=== PATIENT | female | born 1965 | race Caucasian/White ===

== ENCOUNTER 2017-09-21 17:06 | Inpatient (IN) | payer MEDICARE, OTHER ==
[~2017-09-21] VITALS: Ht 170.2 cm; Wt 93.9 kg
[~2017-09-21 17:06] MED LIST: ACETAMINOPHEN325 M1 PO; AMBIEN10 MG PO; AMLODIPINE BESYL5 MG PO; ATORVASTATIN CA10 MG PO; BACTRIM DS TAB1 EACH PO; BENZAPRIL PO; BENZONATATE100 MG PO; BUSPIRONE HCL5 MG PO; CITALOPRAM HBR20 MG PO; DIAZEPAM5 MG PO; FENTANYL1 EAC3 TD; FUROSEMIDE40 MG PO; GABAPENTIN300 MG PO; K-DUR20 ME1 PO; LEVAQUIN500 MG PO; LEVEMIR 3M100 UNITS/ SQ; LEVEMIR100 UNIT/1 SC; LEVOTHYROXINE100 MCG PO; LIDODERM700 MG TOP; METOPROLOL TART25 MG PO; MORPHINE SULFAT30 M2 PO; NICOTINE PATCH1 EAC5; NITROGLYCERIN TD; NORCO 10-325 T1 EACH PO; NORCO 10MG-325MG1 EA PO; NOVOLOG 3M100 UNITS/ SQ; PANTOPRAZOLE SO40 MG PO; POTASSIUM CHLO20 ME1 PO; PROAIR HFA INH8.5 GM INH; PROMETHAZINE HC25 M1 PO; SEROQUEL25 MG PO; TESSALON PERLE100 MG PO; VESICARE5 MG PO; Z IMITREX PO; Z.0.ALBUTEROL SULF8. INH; Z.0.AMLODIPINE BESYL PO; Z.0.BENZONATATE200 M PO; Z.0.BUSPIRONE HCL10 PO; Z.0.CYCLOBENZAPRINE1 MT; Z.0.CYMBALTA60 MG MT; Z.0.DIAZEPAM10 MG PO; Z.0.FUROSEMIDE40 MG PO; Z.0.LEVEMIR 3M100 UN SQ; Z.0.LEVOTHYROXINE75 PO; Z.0.LYRICA50 MG MT; Z.0.NITROGLYCERIN0.4 SL; Z.0.PANTOPRAZOLE SO4 PO; Z.0.PROMETHAZINE HC2 PO; Z.0.TRAZODONE HCL50 PO; Z.0.ZOLPIDEM TARTRA1 PO; Z.1.ALBUTEROL2.5 MG/ IH; Z.1.BENICAR HCT 401 MT; Z.1.DOXYCYCLINE HY10 PO; Z.2.METFORMIN HCL500 PO; ZANAFLEX4 MG PO; [UNRECOGNIZED DRUG - OTHER] MT
[2017-09-21 18:43] LABS: BILIRUBIN,URINE NEGATIVE (NEGATIVE); CLARITY,URINE CLEAR (CLEAR); COLOR,URINE YELLOW (YELLOW); KETONES,URINE NEGATIVE (NEGATIVE); LEUKOCYTE ESTERASE ,URINE NEGATIVE (NEGATIVE); NITRITE,URINE NEGATIVE (NEGATIVE); PROTEIN,URINE DIPSTICK NEGATIVE (NEGATIVE); URINE UROBILINOGEN 0.2 mg/dL (0.2 - 1)
--- NOTE | 2017-09-21 18:45 | Diagnostic Imaging Report ---
PROCEDURE: CHEST SINGLE (PORTABLE) 1817 hrs. COMPARISON: Chest x-ray 12/03/16. INDICATIONS: PAIN ALL OVER BODY FINDINGS: LUNGS: New prominence of the pulmonary interstitium and groundglass opacities throughout the left lung and to a lesser extent the right lung. The vascular markings are prominent, similar to previous exam. No consolidations or discrete soft tissue mass. There is diffuse bronchial wall thickening.The lungs are diffusely hyperinflated consistent with COPD. PLEURA: No effusions or pneumothorax. HEART \T\ MEDIASTINUM: The heart is mildly enlarged. BONES \T\ SOFT TISSUES: Intact. No focal osseous lesions CONCLUSION: Diffuse interstitial prominence and ground glass opacities predominantly in the left lung suggestive of an infectious/inflammatory process. Close interval follow-up is recommended to document resolution. Stable mild cardiomegaly. Dictated by: Gerda White M.D. on 09/21/2017 at 18:53 Electronically approved by: Gerda White M.D. on 09/21/2017 at 18:53
[2017-09-21 18:48] LABS: EPITHELIAL CELLS,URINE FEW /LPF; RBC,URINE 0-5 /HPF (0-5); WBC,URINE (MAN) 0-5 /HPF (0-5)
[2017-09-22] MEDS ORDERED: ACETAMINOPHEN 325 MG TAB PO ONE (00:45)
[2017-09-22 00:54] LABS: BASOPHILS % 0.3 % (0.0-1.0); HEMATOCRIT 37.6 % (34.2-44.1); HEMOGLOBIN 11.9 g/dL (12.0-16.0); LYMPHOCYTES % 13.7 % (18.0-39.1); MEAN CORPUSCULAR HEMOGLOBIN 26.4 pg (28-32); MEAN CORPUSCULAR HGB CONC 31.6 g/dL (31-35); MEAN CORPUSCULAR VOLUME 83.4 fL (81-99); MONOCYTES # (AUTO) 0.9 (0.2-0.8); MONOCYTES % 6.1 % (4.4-11.3); NEUTROPHILS # (AUTO) 11.7 (2.1-6.9); NEUTROPHILS % 79.4 % (38.7-80.0); PLATELET COUNT 183 x10e3/uL (140-360); RED BLOOD COUNT 4.51 x10e6/uL (3.6-5.1)
[2017-09-22 01:01] LABS: INR 1.06; PROTHROMBIN TIME 14.4 seconds (11.9-14.5)
[2017-09-22 01:02] LABS: PARTIAL THROMBOPLASTIN TIME 34.2 seconds (23.8-35.5)
[2017-09-22 01:10] LABS: ALANINE AMINOTRANSFERASE 19 IU/L (0-55); ALBUMIN 3.2 g/dL (3.5-5.0); ALBUMIN/GLOBULIN RATIO 0.8 (0.8-2.0); ALKALINE PHOSPHATASE 116 IU/L (40-150); ANION GAP 13.7 mmol/L (8-16); BLOOD UREA NITROGEN 12 mg/dL (7-26); BUN/CREATININE RATIO 14 (6-25); CALCIUM 8.6 mg/dL (8.4-10.2); CARBON DIOXIDE 23 mmol/L (22-29); CHLORIDE 99 mmol/L (98-107); CREATINE KINASE 69 IU/L (29-168); CREATININE, SERUM 0.88 mg/dL (0.57-1.11); EST GLOMERULAR FILTRATION RATE > 60 ML/MIN (60-); GLUCOSE 363 mg/dL (74-118); POTASSIUM 3.7 mmol/L (3.5-5.1); SODIUM 132 mmol/L (136-145)
[2017-09-22 01:28] LABS: CREATINE KINASE MB < 1.00 ng/mL (0-4.3); TROPONIN I < 0.05 ng/mL (0.0-0.40)
[2017-09-22] MEDS ORDERED: LEVOFLOXACIN 750MG/D5W 150ML 150 ML IV STA (02:52)
[2017-09-22] MEDS ORDERED: ALBUTEROL SULF 0.083% NEB SOLN 3 ML NEB NEB STA (02:56)
[2017-09-22] MEDS ORDERED: METHYLPREDNISOLONE SOD SUCC 125 MG/2ML VIAL IV ONE (03:00)
[2017-09-22] MEDS ORDERED: SODIUM CHLORIDE 0.9% 1000ML 1,000 ML IV ONE ×2 (03:00→03:15)
[2017-09-22] MEDS ORDERED: IPRATROPIUM BROMIDE 0.02% 2.5 ML NEB NEB ONE (03:00)
[2017-09-22] MEDS ORDERED: SODIUM CHLORIDE 0.9% 1000ML 1,000 ML ONE (03:09)
[2017-09-22] MEDS ORDERED: LEVOFLOXACIN 750MG/DEXTROSE PREMIX BAG 150ML IV SCH (05:30)
[2017-09-22] MEDS ORDERED: ASPIRIN 81 MG CHEW TAB PO ONE ×2 (05:30→06:15)
[2017-09-22] MEDS ORDERED: ACETAMINOPHEN 325 MG TAB PO PRN (05:30)
[2017-09-22] MEDS ORDERED: DEXTROSE 50% SYRINGE 50 ML IV PRN (05:30)
[2017-09-22] MEDS ORDERED: ONDANSETRON HCL INJ 2 MG/ML VIAL IV PRN (05:30)
[2017-09-22] MEDS ORDERED: METHYLPREDNISOLONE SOD SUCC 40 MG/ML VIAL IV SCH (06:00)
[2017-09-22] MEDS: ALBUTEROL SULF 0.083% NEB SOLN 3 ML NEB NEB SCH ×2 (07:00→11:00)
[2017-09-22] MEDS: IPRATROPIUM BROMIDE 0.02% 2.5 ML NEB NEB SCH ×4 (07:00→23:00)
[2017-09-22] MEDS: SODIUM CHLORIDE 0.9% 1000ML 1,000 ML IV SCH ×2 (07:44→19:05)
[2017-09-22] MEDS: INSULIN REGULAR, HUMAN 100 UNIT/1 ML 3ML VIAL SQ SCH ×6 (08:26→21:20)
[2017-09-22] MEDS ORDERED: TRULICITY SQ (08:32)
[2017-09-22] MEDS: LEVOFLOXACIN 750MG/D5W 150ML 150 ML IV SCH (08:34)
[2017-09-22] MEDS ORDERED: SODIUM CHLORIDE 0.9% 1000ML 1,000 ML IV STA (08:36)
[2017-09-22] MEDS ORDERED: LIDOCAINE 5% PATCH TP PRN (09:30)
[2017-09-22] MEDS ORDERED: TIZANIDINE HCL 4 MG TAB PO PRN (09:30)
[2017-09-22] MEDS ORDERED: DIAZEPAM 5 MG TAB PO PRN (09:30)
[2017-09-22] MEDS ORDERED: BENZONATATE 100 MG CAP PO PRN (09:30)
[2017-09-22] MEDS ORDERED: DULAGLUTIDE SQ SCH (09:30)
[2017-09-22] MEDS ORDERED: PROMETHAZINE HCL 25 MG TAB PO PRN (09:30)
[2017-09-22 10:03] LABS: CREATINE KINASE MB 0.8 ng/mL (0.00-5.00); TROPONIN I 0.005 ng/mL (0-0.300)
[2017-09-22] MEDS: HYDROCODONE/APAP 10MG-325MG TAB PO SCH ×2 (13:00→17:00)
[2017-09-22] MEDS ORDERED: GABAPENTIN 300 MG CAP PO SCH (15:00)
[2017-09-22] MEDS ORDERED: NITROGLYCERIN 0.4 MG SUBL SL SCH (15:45)
[2017-09-22] MEDS ORDERED: SUMATRIPTAN SUCCINATE 25 MG TAB PO PRN (15:45)
[2017-09-22] MEDS ORDERED: ALBUTEROL SULFATE HFA 8GM INHALATION AEROSOL INH PRN (15:45)
[2017-09-22 16:00] VITALS: BP 134/82
[2017-09-22] MEDS ORDERED: MAGNESIUM SULFATE 2GM/50ML 50 ML IV ONE (16:00)
[2017-09-22] MEDS ORDERED: ASPIR 8181 MG PO (16:55)
[2017-09-22] MEDS ORDERED: BUSPIRONE HCL5 MG PO (16:55)
[2017-09-22] MEDS ORDERED: STOOL SOFTENER100 MG PO (16:55)
[2017-09-22] MEDS ORDERED: BISCODYL (16:55)
[2017-09-22] MEDS ORDERED: LISINOPRIL10 MG PO (16:55)
[2017-09-22] MEDS ORDERED: FUROSEMIDE40 MG PO (16:55)
[2017-09-22] MEDS: BUSPIRONE HCL 5 MG TAB PO SCH (17:00)
[2017-09-22] MEDS ORDERED: AMLODIPINE BESYLATE 5 MG TAB PO SCH (17:00)
[2017-09-22] MEDS: MORPHINE SULFATE 15MG TAB CR PO SCH (17:00)
[2017-09-22] MEDS: ENOXAPARIN SOD INJ 40 MG/0.4 ML SYR SC SCH (17:00)
[2017-09-22] MEDS ORDERED: MORPHINE SULFATE 30 MG TAB ER PO SCH (17:00)
[2017-09-22] MEDS ORDERED: METFORMIN HCL 500 MG TAB PO SCH (17:00)
[2017-09-22] MEDS: FUROSEMIDE 40 MG TAB PO SCH (17:00)
[2017-09-22 18:37] VITALS: BP 134/82
[2017-09-22 18:49] LABS: CREATINE KINASE MB 1.6 ng/mL (0.00-5.00); TROPONIN I 0.007 ng/mL (0-0.300)
[2017-09-22 20:00] VITALS: BP 101/50
--- NOTE | 2017-09-22 20:18 | History and Physical ---
HISTORY OF PRESENT ILLNESS: A 52-year-old female with past medical history positive for COPD, sarcoidosis, diabetes mellitus type 2, hypertension. She came to the hospital complaining of shortness of breath and wheezing. She was found to have pneumonia and COPD exacerbation. Started on IV antibiotic and admitted to the hospital. REVIEW OF SYSTEMS: CARDIOVASCULAR: She had an episode of chest pain, which has resolved right now. RESPIRATORY: She did have cough, shortness of breath and wheezing. GASTROINTESTINAL: No nausea, vomiting or diarrhea. GENITOURINARY: No frequency or dysuria. ALLERGIES: LONG LIST OF MEDICATIONS, LISTED IN THE CHART. SOCIAL HISTORY: She has history of smoking. She does not drink. PAST MEDICAL HISTORY: COPD, sarcoidosis, diabetes and chronic diastolic congestive heart failure. History of chronic pain syndrome. PHYSICAL EXAMINATION: HEART: Shows regular rhythm. Normal S1 and no extra sounds. LUNGS: Show decreased breath sounds bilaterally. ABDOMEN: Soft. EXTREMITIES: Show no evidence of cyanosis, edema or trauma. FINAL IMPRESSION: 1. Chronic obstructive pulmonary disease exacerbation. 2. Lobar pneumonia. 3. Sarcoidosis. 4. Uncontrolled diabetes mellitus type 2 with polyneuropathy. 5. Chronic pain syndrome. PLAN OF TREATMENT: Continue current IV antibiotic regimen. Continue inhalers. We started the patient on insulin regimen of Levemir 16 units at bedtime and Humalog 6 units before each meal. Due to the uncontrolled blood sugar, continue monitoring blood sugar a.c. and nightly. Continue diabetic diet. Continue with Levaquin 750 mg IV piggyback daily. Continue with normal saline 125 mL an hour. Continue with Tylenol 350 mg q.4 h. as needed for pain or fever. Continue albuterol 2 inhalations q.4 h. as needed for shortness of breath. Continue albuterol nebulizer q.4 h. as needed around the clock. Continue amlodipine 5 mg twice a day for hypertension. Continue with aspirin 81 mg one time. Lipitor 10 mg daily. Atrovent q.4 h. Tessalon 200 mg q.6 h. as needed. Citalopram 20 mg daily. Diazepam 10 mg as needed for anxiety once a day. Continue Lovenox 40 mg subcutaneously daily for DVT prophylaxis. Gabapentin 300 mg 3 times a day for diabetic neuropathy. Levemir 16 units at bedtime and Humalog 6 units before each meal. Continue with levothyroxine 100 mcg p.o. daily. Lidoderm patch 12 hours on and 12 hour off. Metformin 1000 mg twice a day. Metoprolol 12.5 mg daily. Morphine 30 mg p.o. twice a day. Nitroglycerin 0.4 mg sublingual p.r.n. for chest pain. Zofran 4 mg IV q.4 h. as needed for nausea and vomiting. Prednisone 40 mg daily. Promethazine 25 mg as needed for nausea. Seroquel 200 mg at bedtime. Continue Vesicare 10 mg daily. Sumatriptan 25 mg daily as needed for migraine. Zanaflex 4 mg q.8 h. as needed. Ambien 5 mg at night p.r.n. for sleep. Trulicity 0.75 units subcutaneously weekly. Consult Dr. Prasad for endocrinology. We are going to consult Dr. Hugo, which is her usual auto heater mechanic and Dr. Lamra for pulmonary. Patient uses oxygen at home. She is much more comfortable right now. Job#: [id number]
[2017-09-22] MEDS: ALBUTEROL SULF 0.083% NEB SOLN 3 ML NEB INH SCH (20:30)
[2017-09-22] MEDS ORDERED: SOLIFENACIN SUCCINATE 5 MG TAB PO SCH (21:00)
[2017-09-22] MEDS ORDERED: INSULIN DETEMIR 100 UNIT/ML PEN SQ SCH (21:00)
[2017-09-22] MEDS ORDERED: ZOLPIDEM TARTRATE 5 MG TAB PO SCH (21:00)
[2017-09-22] MEDS: ATORVASTATIN 10 MG TAB PO SCH (21:18)
[2017-09-22] MEDS: QUETIAPINE FUMARATE 100 MG TAB PO SCH (21:18)
[2017-09-22] MEDS: GABAPENTIN 300 MG CAP PO SCH (21:21)
[2017-09-23] VITALS (7 sets, daily range): BP systolic 92–110; BP diastolic 53–65
[2017-09-23] MEDS: IPRATROPIUM BROMIDE 0.02% 2.5 ML NEB NEB SCH ×6 (02:10→23:00)
[2017-09-23] MEDS: GABAPENTIN 300 MG CAP PO SCH ×3 (06:12→21:38)
[2017-09-23] MEDS: LEVOTHYROXINE SODIUM 100 MCG TAB PO SCH (06:12)
[2017-09-23] MEDS: LEVOFLOXACIN 750MG/D5W 150ML 150 ML IV SCH (06:13)
[2017-09-23] MEDS: ALBUTEROL SULF 0.083% NEB SOLN 3 ML NEB INH SCH ×4 (07:00→20:25)
[2017-09-23] MEDS: INSULIN REGULAR, HUMAN 100 UNIT/1 ML 3ML VIAL SQ SCH ×3 (07:30→11:30)
[2017-09-23] MEDS: MORPHINE SULFATE 15MG TAB CR PO SCH ×3 (08:30→20:07)
[2017-09-23] MEDS: FUROSEMIDE 40 MG TAB PO SCH ×2 (08:30→17:00)
[2017-09-23] MEDS: CITALOPRAM HYDROBROMIDE 20 MG TAB PO SCH (08:30)
[2017-09-23] MEDS: ASPIRIN 81 MG CHEW TAB PO SCH (08:30)
[2017-09-23] MEDS: BUSPIRONE HCL 5 MG TAB PO SCH ×2 (08:30→17:00)
[2017-09-23] MEDS: DOCUSATE SODIUM 100 MG CAP PO SCH (08:30)
[2017-09-23] MEDS: METOPROLOL TARTRATE 25 MG TAB PO SCH (08:30)
[2017-09-23] MEDS: PANTOPRAZOLE SOD 40 MG TABEC PO SCH (08:30)
--- NOTE | 2017-09-23 08:31 | Diagnostic Imaging Report ---
EXAMINATION: CHEST SINGLE (PORTABLE) INDICATION: \S\pneumonia COMPARISON: Chest x-ray 09/21/2017. FINDINGS: AP view TUBES and LINES: None. LUNGS: Lungs are well inflated. There are bibasilar atelectasis. There is perihilar interstitial opacities, consistent with interstitial edema. PLEURA: Trace right pleural effusion. HEART AND MEDIASTINUM: Cardiac size is moderately enlarged. There are atherosclerotic calcifications within the aorta. BONES AND SOFT TISSUES: No acute osseous lesion. Soft tissues are unremarkable. UPPER ABDOMEN: No free air under the diaphragm. IMPRESSION: No significant interval change in appearance of the interstitial edema, most likely cardiogenic. Signed by: Dr. Salomón Hanson M.D. on 09/23/2017 8:28 AM
[2017-09-23 08:36] LABS: BASOPHILS % 0.1 % (0.0-1.0); HEMATOCRIT 31.2 % (34.2-44.1); HEMOGLOBIN 9.7 g/dL (12.0-16.0); LYMPHOCYTES # (AUTO) 1.3 (1.0-3.2); LYMPHOCYTES % 18.1 % (18.0-39.1); MEAN CORPUSCULAR HEMOGLOBIN 26.8 pg (28-32); MEAN CORPUSCULAR HGB CONC 31.1 g/dL (31-35); MEAN CORPUSCULAR VOLUME 86.2 fL (81-99); MONOCYTES # (AUTO) 0.3 (0.2-0.8); MONOCYTES % 3.4 % (4.4-11.3); NEUTROPHILS # (AUTO) 5.8 (2.1-6.9); PLATELET COUNT 153 x10e3/uL (140-360); RED BLOOD COUNT 3.62 x10e6/uL (3.6-5.1)
[2017-09-23] MEDS ORDERED: HYDROCODONE/APAP 10MG-325MG TAB PO PRN (09:00)
[2017-09-23] MEDS: LISINOPRIL 20 MG TAB PO SCH (09:00)
[2017-09-23] MEDS ORDERED: PREDNISONE 20 MG TAB PO SCH (09:00)
[2017-09-23 09:01] LABS: BLOOD UREA NITROGEN 16 mg/dL (7-26); BUN/CREATININE RATIO 21 (6-25); CALCIUM 8.2 mg/dL (8.4-10.2); CARBON DIOXIDE 25 mmol/L (22-29); CHLORIDE 107 mmol/L (98-107); CREATININE, SERUM 0.78 mg/dL (0.57-1.11); EST GLOMERULAR FILTRATION RATE > 60 ML/MIN (60-); GLUCOSE 265 mg/dL (74-118); SODIUM 140 mmol/L (136-145)
[2017-09-23] MEDS ORDERED: INSULIN REGULAR, HUMAN 100 UNIT/1 ML 3ML VIAL SQ SCH (16:30)
[2017-09-23] MEDS: INSULIN LISPRO 100 UNIT/1 ML 3ML VIAL SQ SCH ×3 (16:30→20:08)
[2017-09-23 16:47] LABS: FREE T4 (FREE THYROXINE) 1.01 ng/dL (0.8-1.8); THYROID STIMULATING HORMONE 0.151 uIU/mL (0.350-4.940)
[2017-09-23] MEDS ORDERED: INSULIN LISPRO 100 UNIT/1 ML 3ML VIAL SQ SCH (17:00)
[2017-09-23] MEDS: ENOXAPARIN SOD INJ 40 MG/0.4 ML SYR SC SCH (17:00)
--- NOTE | 2017-09-23 17:15 | Consultation ---
DATE OF CONSULTATION: September 22, 2017 PULMONARY MEDICINE CONSULTATION REASON FOR REFERRAL: Shortness of breath. HISTORY: Mrs. Addison is a pleasant 52-year-old female with shortness of breath. The patient is well known to me during the last few years for management for predominantly COPD. The patient was having increased cough recently. There is associated congestion and fever and left-sided chest pains. Onset really worsened over the last 2 days. The patient was getting first line therapy at home and even in the emergency room. She had insufficient response, and so, therefore, it was elected to admit her to the hospital. The patient is well known with COPD and secondary pulmonary hypertension. There is report of sarcoidosis as longstanding diagnosis, but tissue diagnosis was not found when I did record recovery. The patient has mixture of assist devices to help her ambulating including a cane, a wheelchair and scooter. She recently lost her walker. Her exercise tolerance takes her from her home to the driveway. The patient recently worsening in terms of her functionality and exercise tolerance. PAST MEDICAL HISTORY: Hypertension, diabetes, COPD, long-term hypoxemia, chronic respiratory failure on 6 liters per minute nasal cannula oxygen at home, CHF, asthma, report of sarcoidosis in the past, history of cholecystectomy, appendectomy, hysterectomy, hernia surgery, bowel resection, laminectomy, knee surgery, multiple hernia repairs. MEDICATIONS: Medication list includes multiple meds which were reviewed per electronic records and some of which she may no longer be on. ALLERGIES: PAPER TAPE, VALSARTAN, , IODINE. FAMILY HISTORY: Noncontributory to this condition. SOCIAL HISTORY: She smokes 1-2 packs a day, no heavy drinking, no drugs. She has a large supportive family. REVIEW OF SYSTEMS: GENERAL: No weight changes recently. HEENT: Dry mouth. OPHTHALMOLOGIC: No double vision. ENDOCRINE: No thyroid disease. PULMONARY: No hemoptysis. CARDIAC: No recent myocardial infarction. GI: Mild constipation chronically. : No blood in the urine. NEUROLOGIC: No seizures. MUSCULOSKELETAL: Mild arthritis. PSYCHIATRIC: No active depressive mood. OBJECTIVE VITAL SIGNS: Afebrile. Vital signs noted per electronic record. GENERAL: Some increased work of breathing, mild. She appears very weak and is pale. HEENT: Normocephalic, atraumatic. NECK: Supple. Throat midline. LUNGS: Bilateral air entry, moderate wheezing, few rhonchi. CARDIOVASCULAR: S1 and S2, no murmurs, rubs or gallops. ABDOMEN: Soft and nontender. EXTREMITIES: No clubbing or cyanosis. There is trace edema to the legs. INTEGUMENT: No rash, no purpura. LABORATORY DATA: Potassium 3.7, BUN 12, 0.9 creatinine, 50 white count, 38 hematocrit, 183,000 platelets. BNP was 150. Albumin 3.2. IMPRESSION AND PLAN 1. Chronic obstructive pulmonary disease with exacerbation. 2. Treat for pneumonia. 3. History of reported sarcoidosis. Could never recover the original or any biopsies despite her thinking she had them done. 4. History of diastolic congestive heart failure. 5. Some chronic pain. 6. Diabetes, hypertension, history of pancreatitis. 7. Admit to the hospital. Continue steroids. Continue bronchodilators. Continue to ensure the chest x-ray is resolved towards baseline or else she will need a CAT scan of her lungs. 8. Deep venous thrombosis prophylaxis. Aggressive therapy immobilization. I would like to thank Dr. Jarvis for the opportunity to participate in the care of Mrs. Addison. I remain available for questions -- please call. Job#: [id number]
[2017-09-23] MEDS ORDERED: PNEUMOCOCCAL VACCINE POLYVALENT 23 MCG/0.5 ML VIAL IM SCH (19:00)
[2017-09-23] MEDS ORDERED: INFLUENZA VIRUS VAC SPLIT INJ 0.5 ML SYR IM SCH (19:00)
[2017-09-23] MEDS: SODIUM CHLORIDE 0.9% 1000ML 1,000 ML IV SCH ×2 (20:07→20:15)
[2017-09-23] MEDS: QUETIAPINE FUMARATE 100 MG TAB PO SCH (20:08)
[2017-09-23] MEDS: ATORVASTATIN 10 MG TAB PO SCH (20:08)
[2017-09-23] MEDS ORDERED: INSULIN DETEMIR 100 UNIT/ML PEN SQ SCH ×2 (21:00)
[2017-09-24] VITALS: BP 113/58
[2017-09-24] MEDS: IPRATROPIUM BROMIDE 0.02% 2.5 ML NEB NEB SCH ×2 (02:25→07:00)
[2017-09-24 04:00] VITALS: BP 112/60
[2017-09-24] MEDS: LEVOTHYROXINE SODIUM 100 MCG TAB PO SCH (05:14)
[2017-09-24] MEDS: LEVOFLOXACIN 750MG/D5W 150ML 150 ML IV SCH (05:14)
[2017-09-24] MEDS: GABAPENTIN 300 MG CAP PO SCH (05:14)
[2017-09-24] MEDS: ALBUTEROL SULF 0.083% NEB SOLN 3 ML NEB INH SCH (07:00)
--- NOTE | 2017-09-24 07:01 | Diagnostic Imaging Report ---
EXAMINATION: CHEST SINGLE (PORTABLE) INDICATION: \S\CHF and bilateral pneumonia COMPARISON: 09/23/2017 FINDINGS: TUBES and LINES: None. LUNGS: Lungs are well inflated. There are bibasilar atelectasis. There is mild prominence of the central pulmonary vasculature, consistent with pulmonary venous congestion. Interlobular septi thickening present. PLEURA: No pleural effusion or pneumothorax. HEART AND MEDIASTINUM: Cardiac size is mildly enlarged. BONES AND SOFT TISSUES: No acute osseous lesion. Soft tissues are unremarkable. UPPER ABDOMEN: No free air under the diaphragm. IMPRESSION: Mild interstitial edema Signed by: Dr. Manuel Haque M.D. on 09/24/2017 6:57 AM
[2017-09-24 07:09] LABS: BASOPHILS % 0.1 % (0.0-1.0); EOSINOPHILS % 0.1 % (0.0-6.0); HEMOGLOBIN 9.8 g/dL (12.0-16.0); LYMPHOCYTES # (AUTO) 2.3 (1.0-3.2); LYMPHOCYTES % 32.8 % (18.0-39.1); MEAN CORPUSCULAR HEMOGLOBIN 26.6 pg (28-32); MEAN CORPUSCULAR HGB CONC 30.6 g/dL (31-35); MONOCYTES # (AUTO) 0.2 (0.2-0.8); MONOCYTES % 3.3 % (4.4-11.3); NEUTROPHILS # (AUTO) 4.5 (2.1-6.9); NEUTROPHILS % 63.4 % (38.7-80.0); PLATELET COUNT 164 x10e3/uL (140-360); RED BLOOD COUNT 3.68 x10e6/uL (3.6-5.1); RED CELL DISTRIBUTION WIDTH 15.8 % (11.7-14.4)
[2017-09-24] MEDS: INSULIN LISPRO 100 UNIT/1 ML 3ML VIAL SQ SCH ×2 (07:30→08:00)
[2017-09-24 07:38] LABS: ANION GAP 12.6 mmol/L (8-16); BLOOD UREA NITROGEN 18 mg/dL (7-26); BUN/CREATININE RATIO 21 (6-25); CALCIUM 8.4 mg/dL (8.4-10.2); CARBON DIOXIDE 28 mmol/L (22-29); CHLORIDE 104 mmol/L (98-107); CREATININE, SERUM 0.87 mg/dL (0.57-1.11); EST GLOMERULAR FILTRATION RATE > 60 ML/MIN (60-); GLUCOSE 256 mg/dL (74-118); POTASSIUM 3.6 mmol/L (3.5-5.1); SODIUM 141 mmol/L (136-145)
--- NOTE | 2017-09-24 08:11 | Consultation ---
DATE OF CONSULTATION: REASON FOR CONSULTATION: Chest pain. HISTORY OF PRESENT ILLNESS: Ms. Addison is a 52-year-old lady with a past medical history as listed below. Apparently, has not been feeling too well for the last couple of weeks. She states she has had some cough, congestion and fever off and on in the last few days, and it has gotten worse. Patient states that she gets chest pain when she coughs, and at times even when she does not cough. It lasts for about 10-15 minutes or so. She has had a stress test a few years back. Yesterday, the patient reportedly was really sick and so they called 911, and was brought to the hospital. Grandson reported that she has been having some runny nose. She states she feels better now. REVIEW OF SYSTEMS CONSTITUTIONAL: Has some fatigue and weakness. HEENT: Has a headache. No blurring of vision, seizures or syncope. CARDIOVASCULAR: Chest pain and some dyspnea. No orthopnea or PND. RESPIRATORY: Has cough. Had fever and scant amount of expectoration. GI: No abdominal pain, vomiting or diarrhea. : No dysuria, frequency or incontinence. ALLERGIES: TAPE, VALSARTAN, SHELLFISH, FISH, PENICILLIN, IODINE. MEDICATIONS: See list. PAST MEDICAL HISTORY 1. History of COPD. 2. History of hypertension. 3. History of diabetes mellitus. 4. History of asthma/COPD. 5. History of sarcoidosis. 6. History of pancreatitis. 7. Cardiomyopathy. PAST SURGICAL HISTORY: History of hysterectomy, history of appendectomy, history of cholecystectomy. history of laminectomy, history of knee surgeries, history of hernia repair, surgery for perforated bowel. SOCIAL HISTORY: Smokes a pack a day. Does not drink alcohol. Smoked for several years. FAMILY HISTORY: Noncontributory. PHYSICAL EXAMINATION GENERAL: Moderately built and nourished lady alert and oriented. Not in any obvious distress. VITALS: Heart rate is 86, blood pressure 92/65, respiratory rate 18. HEENT: Atraumatic. NECK: No JVD, bruit, thyromegaly, or lymphadenopathy. CARDIOVASCULAR: First and 2nd heart sounds heard. No murmurs, rubs or gallops are appreciated. CHEST: Decreased air entry at the bases. No adventitious sounds appreciated. ABDOMEN: Soft and nontender. EXTREMITIES: No edema. LABS: EKG shows sinus tach at 103 beats per minute, right axis, right bundle branch block, secondary ST-T changes. IMPRESSION 1. Chronic obstructive pulmonary disease exacerbation. 2. Pneumonia. 3. Chest pain. 4. Cardiomyopathy. 5. Hypertension. 6. Diabetes mellitus. 7. History of sarcoidosis. 8. History of pancreatitis. PLAN 1. Follow serial colonic enzymes. 2. Get echocardiogram to assess LV function and valvular function. 3. Continue with antibiotics and bronchodilators. 4. Patient has been counseled on tobacco cessation. 5. Further cardiac workup depending on clinical course. 6. Discussed my impression and plan of management with the patient and she understands. As always, I appreciate and thank you very much for the referral. Job#: [id number] AYANNA
[2017-09-24 08:32] VITALS: BP 98/59
[2017-09-24] MEDS ORDERED: PREDNISONE 20 MG TAB PO SCH (09:00)
[2017-09-24] MEDS ORDERED: INSULIN DETEMIR 100 UNIT/ML PEN SQ SCH (09:00)
[2017-09-24] MEDS: BUSPIRONE HCL 5 MG TAB PO SCH (09:44)
[2017-09-24] MEDS: METOPROLOL TARTRATE 25 MG TAB PO SCH (09:44)
[2017-09-24] MEDS: MORPHINE SULFATE 15MG TAB CR PO SCH (09:44)
[2017-09-24] MEDS: DOCUSATE SODIUM 100 MG CAP PO SCH (09:44)
[2017-09-24] MEDS: ASPIRIN 81 MG CHEW TAB PO SCH (09:44)
[2017-09-24] MEDS: FUROSEMIDE 40 MG TAB PO SCH (09:44)
[2017-09-24] MEDS: CITALOPRAM HYDROBROMIDE 20 MG TAB PO SCH (09:44)
[2017-09-24] MEDS: LISINOPRIL 20 MG TAB PO SCH (09:45)
[2017-09-24] MEDS: PANTOPRAZOLE SOD 40 MG TABEC PO SCH (09:45)
--- NOTE | 2017-09-24 09:46 | Consultation ---
DATE OF CONSULTATION: September 22, 2017 ENDOCRINE CONSULTATION Thank you very much for referring this patient. This is a 52-year-old white female who is known to me from her previous followups several years back. Patient is a known diabetic for almost 7 years. She has been off the medications for almost 3 years, and was recently started back on the insulin 60 units twice a day of Levemir and Humalog 30 units 3 times a day. She is also on Trulicity as an outpatient. Patient has a long-standing history of COPD. She is a chronic smoker who came to the hospital with a history of chest pain and shortness of breath. Patient is presently on the steroids and her blood sugars are significantly elevated. Patient also has a history of congestive cardiomyopathy, hypertension, hypothyroidism, hyperlipidemia, and is on several other medications, including Lipitor 10 mg once daily, Synthroid 0.1 mg once daily. The patient during the hospital stay has been put on insulin, but her blood sugars are 363 to 265 range. Patient also has a history of sarcoidosis. PHYSICAL EXAMINATION GENERAL: Today, the patient is alert, awake and a little apprehensive. She is moderate to morbidly obese. VITALS: Her heart rate is around 100, blood pressure 130/80. HEENT: Essentially unremarkable. Thyroid is palpable. Clinically, she is near euthyroid. CHEST: Bilateral vesicular breathing. She has bilateral bronchospasm at the base. CARDIAC: First and 2nd heart sounds. There is no 3rd or 4th heart sounds. Ejection murmur of grade 2/6. EXTREMITIES: Patient has evidence of diabetic sensory neuropathy in both lower extremities. CLINICAL IMPRESSION 1. Diabetes mellitus, type 2, uncontrolled with complications precipitated by steroids. 2. Chronic obstructive pulmonary disease with acute exacerbation. 3. History of sarcoidosis. 4. Coronary artery disease. 5. Congestive cardiomyopathy. 6. Hypertension. 7. Hyperlipidemia. 8. Hypothyroidism. PLAN: At this time is to put her back on the Levemir twice a day and Humalog 3 times a day depending upon the blood sugars. Will do a hemoglobin A1c and thyroid function test. Thanks for referring this patient. I will be following this patient with you. Job#: [id number] AYANNA
--- NOTE | 2017-09-24 10:25 | Discharge Summary ---
ADMIT DIAGNOSES 1. Left lower lobe pneumonia, likely gram-negative alexx. 2. Chronic obstructive pulmonary disease exacerbation. 3. [id number] diastolic congestive heart failure. 4. Type 2 diabetes mellitus. 5. Tobacco abuse. DISCHARGE DIAGNOSES 1. Left lower lobe pneumonia, likely gram-negative alexx, resolving. 2. Chronic obstructive pulmonary disease exacerbation, resolved. 3. Severe chronic obstructive pulmonary disease. 4. [id number]-[id number] diastolic congestive heart failure, resolving. 5. Type 2 diabetes mellitus. 6. Tobacco abuse. HOSPITAL COURSE: This is a 52-year-old white woman who was initially admitted to [facility] with a diagnosis of COPD exacerbation secondary to left lower lobe pneumonia, likely gram-negative alexx. Patient improved clinically with intravenous antibiotics, namely levofloxacin. During this hospitalization, the patient's blood and urine cultures did not reveal any bacterial growth, but it was presumed her pneumonia was secondary to gram-negative alexx species. Once again, the patient improved dramatically with intravenous antibiotics. On admission, the patient's white blood cell count was 14,700. On the day of discharge, the patient's white blood cell count was 7000. The patient had an echocardiogram done during this hospitalization that revealed a left ventricular ejection fraction of 60% to 65%, but it did reveal concentric left ventricular hypertrophy and left atrial enlargement. The patient thus was diagnosed with diastolic heart failure. The patient was seen by her bee robber during this hospitalization, namely Dr. Piter Lamar because of her COPD exacerbation and history of sarcoidosis. The patient was also seen by her car dumper during this hospitalization, namely Dr. Hugo because of her congestive heart failure. The patient's hospitalization was unremarkable. During this hospitalization, the patient underwent serial cardiac enzymes, as well as electrocardiograms, which did not reveal any evidence of acute myocardial ischemia or infarction. CONDITION ON DISCHARGE: Stable. DISCHARGE MEDICATIONS 1. Levofloxacin 750 mg 1 p.o. daily for 7 days. 2. Prednisone 20 mg daily for 5 days. 3. Nicotine patch 21 mg one patch daily (the patient was told not to smoke more than 6 cigarettes a day while wearing the nicotine patch). 4. Anthon 10 per 325 mg 1 b.i.d. p.r.n. pain. 5. ProAir inhaler 2 puffs q.i.d. 6. Albuterol nebulized treatments 2.5 mg t.i.d. scheduled. 7. Buspar 10 mg b.i.d. 8. Citalopram 20 mg daily. 9. Diazepam 10 mg at bedtime p.r.n. insomnia/anxiety. 10. Docusate 100 mg daily. 11. Furosemide 40 mg b.i.d. 12. Gabapentin 600 mg daily. 13. Levothyroxine 100 mcg daily. 14. Lidoderm patch 1 patch applied to affected area. 15. Lisinopril 40 mg daily. 16. Metoprolol tartrate 12.5 mg daily. 17. Morphine sulfate extended release 15 mg b.i.d. 18. Nitroglycerin 0.4 mg 1 sublingual every 5 minutes p.r.n. chest pain. 19. Pantoprazole 40 mg daily. 20. Promethazine 25 mg once daily as needed for nausea and vomiting. 21. Seroquel 25 mg at bedtime. 22. Sumatriptan 25 mg once daily as needed for migraine headaches. 23. Tizanidine 4 mg q.8 h. p.r.n. muscle spasms. 24. Bisacodyl 5 mg once daily as needed for constipation. 25. Trulicity 0.75 mg subcutaneous once a week. FOLLOWUP INSTRUCTIONS: The patient was instructed to follow up with her primary care physician, namely myself, Dr. Aldair Crespo within 1 week. Tobacco cessation was highly recommended to the patient. ALDAIR CRESPO MD Job#: [id number] RI cc: Garrison ABDI MD MTDD
[2017-09-24] MEDS ORDERED: LEVAQUIN500 MG PO (10:57)
[2017-09-24] MEDS ORDERED: NICOTINE PATCH1 EAC1 TP (10:59)
[2017-09-24] MEDS ORDERED: PREDNISONE5 G1 (11:01)
[2017-09-24] MEDS ORDERED: PREDNISONE20 MG PO (11:01)
--- NOTE | 2017-09-24 11:01 | Progress Note ---
DATE: September 24, 2017 PULMONARY MEDICINE PROGRESS NOTE SUBJECTIVE: Ms. Addison was seen and examined at bedside. Chest x-ray continues to show bilateral moderate-size opacities. Patient still very weak. Oxygen saturation 100% on 3 L per minute of oxygen at this time. One bowel movement achieved. Brown phlegm being expectorated. Blood cultures no growth today times 24 hours. Urine cultures no growth so far. REVIEW OF SYSTEMS: No GI bleeding, no headaches, no double vision. OBJECTIVE VITALS: Afebrile. Vital signs noted per electronic record. GENERAL: Still weak, sitting up, mild increased work of breathing. HEENT: Normocephalic and atraumatic. NECK: Supple. Throat midline. LUNGS: Bilateral air entry is moderately present, slightly decreased. Few rhonchi, few rales. CARDIOVASCULAR: S1, S2. No murmurs, rubs or gallops. ABDOMEN: Soft, nontender. EXTREMITIES: No clubbing, no cyanosis, there is no edema. INTEGUMENT: No rash. No purpura. LABS: White count 7.4, hematocrit 31. BUN 16, creatinine 0.8, magnesium of 1.9. IMPRESSION AND PLAN 1. Pneumonia. 2. Possible fluid overload. 3. Chronic obstructive pulmonary disease with exacerbation. 4. Hypoxemia, chronic. 5. Reported sarcoidosis by history. 6. Diabetes. 7. Chronic pain syndrome. Continue current treatment. We will follow along closely. Diuretics trial as possible. Continue to push nutrition in-house. Smoking cessation remains highly recommended. Antibiotics for now. Continue steroids, which were weaned. Bronchodilators. After review outside CAT scan, definitely this x-ray is worse when compared to 2010 and 2012, but compared to a year ago is roughly the same with a few nonspecific changes. Continue other treatment as center of care for the COPD exacerbation. Follow along closely. CT has been ordered. Mobilize the patient as possible. Job#: [id number] VAS
--- NOTE | 2017-09-25 04:04 | Progress Note ---
DATE: September 24, 2017 PULMONARY MEDICINE PROGRESS NOTE SUBJECTIVE: Patient was seen and examined at bedside. She was eating well. She is having bowel movements. She walked around and feels much better. REVIEW OF SYSTEMS: No headaches. OBJECTIVE VITALS: Afebrile. Vital signs reviewed per the chart record. GENERAL: Alert and oriented times 3. HEENT: Normocephalic. NECK: Supple. LUNGS: Bilateral air entry. Rate rhonchi, mostly better. CARDIOVASCULAR: S1, S2. ABDOMEN: Soft. EXTREMITIES: No edema. INTEGUMENT: No rash. LABS: creatinine 0.9. White count 7, hematocrit 32. IMPRESSIONS 1. Interstitial lung disease, recently worsened. 2. Pneumonia. 3. Possible superimposed fluid overload. 4. Chronic obstructive pulmonary disease with exacerbation. 5. Weakness. PLAN 1. Continue oxygen therapy. 2. Patient will be discharged with close observation and followup. 3. We will discuss options with her regarding the need for bronchoscopy in near future. 4. Continue bronchodilators and other COPD management. Job#: [id number] CF
== END 2017-09-24 11:40 | disposition home or self-care (01) | DRG 190 ==
LOC: ER 17:06 → ERHOLD 09-22 05:36 → EDBEDREQSVC 09-22 08:17 → MED/SURG3 09-22 14:03
PROVIDERS: ADMIT Internal Medicine; ATTEND Internal Medicine
DX: J44.0 Chronic obstructive pulmonary disease with (acute) lower respiratory infection (principal); I50.33 Acute on chronic diastolic (congestive) heart failure; J15.6 Pneumonia due to other Gram-negative bacteria; J84.9 Interstitial pulmonary disease, unspecified; I42.9 Cardiomyopathy, unspecified; I11.0 Hypertensive heart disease with heart failure; J44.1 Chronic obstructive pulmonary disease with (acute) exacerbation; D86.9 Sarcoidosis, unspecified; E66.01 Morbid (severe) obesity due to excess calories; Z68.32 Body mass index [BMI] 32.0-32.9, adult; E03.9 Hypothyroidism, unspecified; E11.65 Type 2 diabetes mellitus with hyperglycemia; F17.210 Nicotine dependence, cigarettes, uncomplicated; R09.02 Hypoxemia; G89.29 Other chronic pain; G89.4 Chronic pain syndrome; E11.42 Type 2 diabetes mellitus with diabetic polyneuropathy; Z79.4 Long term (current) use of insulin
CPT/HCPCS: 36415; 71010; 80048; 80053; 81001; 82550; 82553; 82948; 83036; 83605; 83735; 83880; 84439; 84443; 84484; 85025; 85610; 85730; 87040; 87086; 87400; 93005; 93306; 94640; 96360; 96365; 96374; 99284; J1650; J2920; J2930; J7030

== ENCOUNTER 2017-10-15 22:46 | Inpatient (IN) | payer MEDICARE, OTHER ==
[~2017-10-15] VITALS: Ht 170.2 cm; Wt 97.5 kg
[~2017-10-15 22:46] MED LIST changes: +ASPIR 8181 MG PO; +BISCODYL; +LISINOPRIL10 MG PO; +NICOTINE PATCH1 EAC1 TP; +PREDNISONE20 MG PO; +PREDNISONE5 G1; +STOOL SOFTENER100 MG PO; +TRULICITY SQ
[2017-10-15] MEDS ORDERED: SODIUM CHLORIDE 0.9% 1000ML 1,000 ML IV STA (22:47)
[2017-10-15] MEDS ORDERED: DEXAMETHASONE SOD PHOS 10 MG/1 ML VIAL IV ONE (23:00)
[2017-10-15] MEDS ORDERED: METHYLPREDNISOLONE SOD SUCC 125 MG/2ML VIAL IV ONE (23:00)
[2017-10-15 23:29] LABS: BASOPHILS % 0.3 % (0.0-1.0); EOSINOPHILS # (AUTO) 0.2 (0.0-0.4); EOSINOPHILS % 2.8 % (0.0-6.0); HEMATOCRIT 32.7 % (34.2-44.1); HEMOGLOBIN 10.1 g/dL (12.0-16.0); LYMPHOCYTES % 45.3 % (18.0-39.1); MEAN CORPUSCULAR HEMOGLOBIN 27.3 pg (28-32); MEAN CORPUSCULAR HGB CONC 30.9 g/dL (31-35); MEAN CORPUSCULAR VOLUME 88.4 fL (81-99); MONOCYTES # (AUTO) 0.3 (0.2-0.8); MONOCYTES % 4.2 % (4.4-11.3); NEUTROPHILS # (AUTO) 3.2 (2.1-6.9); NEUTROPHILS % 47.1 % (38.7-80.0); PLATELET COUNT 200 x10e3/uL (140-360); RED CELL DISTRIBUTION WIDTH 15.9 % (11.7-14.4)
--- NOTE | 2017-10-15 23:35 | Diagnostic Imaging Report ---
EXAM: CHEST SINGLE (PORTABLE), AP 1 view DATE: 10/15/2017 10:47 PM Time stamp on exam: 2316 hours INDICATION: Cough, shortness of breath, pneumonia COMPARISON: AP view of the chest September 24, 2017 FINDINGS: LINES/TUBES: None LUNGS: Stable interstitial and alveolar opacities bilaterally. PLEURA: No effusions or pneumothorax. HEART AND MEDIASTINUM: Stable cardiac enlargement. BONES AND SOFT TISSUES: No acute findings. IMPRESSION: Stable findings of pulmonary edema. Superimposed infection is a possibility given clinical symptoms. Signed by: Dr. Mariela Grewal M.D. on 10/15/2017 11:32 PM
[2017-10-15 23:39] LABS: INR 1.08; PROTHROMBIN TIME 14.6 seconds (11.9-14.5)
[2017-10-15 23:40] LABS: PARTIAL THROMBOPLASTIN TIME 32.7 seconds (23.8-35.5)
[2017-10-15] MEDS ORDERED: VANCOMYCIN 1GM/NS 250 ML 250 ML IV STA (23:40)
[2017-10-15 23:48] LABS: ALBUMIN 2.8 g/dL (3.5-5.0); ALBUMIN/GLOBULIN RATIO 0.8 (0.8-2.0); ANION GAP 11.7 mmol/L (8-16); CALCIUM 8.1 mg/dL (8.4-10.2); CREATININE, SERUM 1.48 mg/dL (0.57-1.11); MAGNESIUM 1.4 MG/DL (1.3-2.1); POTASSIUM 3.7 mmol/L (3.5-5.1)
[2017-10-15 23:50] LABS: B-TYPE NATRIURETIC PEPTIDE2 17.2 pg/mL (0-100)
[2017-10-15 23:54] LABS: CREATINE KINASE MB 2.7 ng/mL (0.00-5.00)
[2017-10-15 23:55] LABS: ABG PH 7.38 (7.31-7.41)
[2017-10-16 01:02] LABS: ACETAMINOPHEN < 3 ug/mL (10-30)
[2017-10-16 02:41] LABS: BILIRUBIN,URINE NEGATIVE (NEGATIVE); KETONES,URINE NEGATIVE (NEGATIVE); LEUKOCYTE ESTERASE ,URINE NEGATIVE (NEGATIVE); NITRITE,URINE NEGATIVE (NEGATIVE); PROTEIN,URINE DIPSTICK NEGATIVE (NEGATIVE); URINE UROBILINOGEN 0.2 mg/dL (0.2 - 1)
[2017-10-16 02:43] LABS: CLARITY,URINE CLEAR (CLEAR); COLOR,URINE YELLOW (YELLOW)
[2017-10-16 02:45] LABS: AMPHETAMINES SCREEN,URINE NEGATIVE (NEGATIVE); BENZODIAZEPINES SCREEN,URINE POSITIVE (NEGATIVE); PHENCYCLIDINE SCREEN,URINE NEGATIVE (NEGATIVE)
[2017-10-16 02:57] LABS: AMORPHOUS SEDIMENT,URINE FEW (FEW); BACTERIA,URINE FEW /HPF; EPITHELIAL CELLS,URINE FEW /LPF; RBC,URINE 0-5 /HPF (0-5); WBC,URINE (MAN) 0-5 /HPF (0-5)
--- NOTE | 2017-10-16 03:14 | Diagnostic Imaging Report ---
EXAM: CT ABDOMEN AND PELVIS without IV CONTRAST DATE: 10/16/2017 2:29 AM Time stamp on Exam: 0241 hours INDICATION: Weakness COMPARISON: CT of the chest August 01, 2014 TECHNIQUE: The abdomen and pelvis were scanned using a multidetector helical scanner. Coronal and sagittal reformations were obtained. Routine protocol performed. IV Contrast: None Oral Contrast: None CTDIvol has been reviewed. It is below the limits set by the Radiation Protocol Committee (RPC). FINDINGS: LOWER THORAX: Stable interstitial and alveolar opacities. Bibasilar atelectasis. Partially visualized lipomatous hypertrophy of the intra-atrial septum. LIVER: Hepatomegaly BILIARY: Cholecystectomy. No ductal dilation. SPLEEN: Splenomegaly to 15 cm in length PANCREAS: No masses ADRENALS: No nodules RIGHT KIDNEY: No nephroureterolithiasis or hydronephrosis. LEFT KIDNEY: No nephroureterolithiasis or hydronephrosis. GI TRACT: No wall thickening or obstruction. Surgical sutures around the loop of small bowel. Surgical changes of appendectomy. VESSELS: Mild atherosclerotic changes of the abdominal aorta without aneurysm. PERITONEUM/RETROPERITONEUM: No free air or fluid LYMPH NODES: No lymphadenopathy REPRODUCTIVE ORGANS: Normal appearance of the left ovary. The uterus and right ovary are not visualized. BLADDER: Air and Chavez catheter are seen within a decompressed bladder. SOFT TISSUES: Surgical changes of the anterior abdomen likely related to hernia repair. BONES: No suspicious bone lesions. IMPRESSION: No acute findings. Mild hepatosplenomegaly. Stable chronic changes of interstitial thickening and ground glass opacities. Signed by: Dr. Mariela Grewal M.D. on 10/16/2017 3:10 AM
--- NOTE | 2017-10-16 03:42 | Diagnostic Imaging Report ---
Examination: CT BRAIN WITHOUT CONTRAST History:Confusion. Altered mental status. Comparison studies:None Technique: Axial images were obtained from the skull base to the vertex. Coronal and sagittal images reconstructed from the axial data. Intravenous contrast: None Findings: Scalp: No abnormalities. Bones: No fractures, blastic or lytic lesions. Brain sulci: Appropriate for age. Ventricles: Normal in size and configuration. No hydrocephalus. Extra-axial space: No abnormalities. Parenchyma: No abnormal densities. No masses, hemorrhage, or acute or chronic cortical based vascular insults. Sellar/suprasellar region: No abnormalities. Craniocervical junction: Patent foramen magnum. No Chiari one malformation. Incidental findings: Near complete opacification of the right sphenoid sinus. Impression: No intracranial abnormalities. Signed by: Dr. Chiqui Chamorro M.D. on 10/16/2017 3:38 AM
[2017-10-16] MEDS ORDERED: SODIUM CHLORIDE 0.9% 1000ML 1,000 ML IV ONE (04:45)
[2017-10-16] MEDS ORDERED: DEXTROSE 50% SYRINGE 50 ML IV PRN ×2 (05:00→10:00)
[2017-10-16] MEDS: NICOTINE 14 MG/EA PATCH TOP SCH (05:10)
[2017-10-16] MEDS: IPRATROPIUM BROMIDE 0.02% 2.5 ML NEB NEB SCH ×4 (07:00→19:50)
[2017-10-16] MEDS: ALBUTEROL SULF 0.083% NEB SOLN 3 ML NEB NEB SCH ×4 (07:00→19:50)
--- NOTE | 2017-10-16 07:24 | History and Physical ---
CHIEF COMPLAINT: Shortness of breath. HISTORY OF PRESENT ILLNESS: This is a 52-year-old white woman who presented to [facility] emergency room with a 2-3 day history of worsening shortness of breath and cough. The patient was actually just discharged from [facility] on September 24, 2017, because of left lower lobe pneumonia. The patient states that 2 days ago she just finished at 7-day course of oral levofloxacin. The patient states for the past couple of days she has worsening shortness of breath and worsening productive cough. The patient denies any chest pain or tightness. She also denies any fever or chills. In the emergency room, the patient was found to have a initial blood pressure of 69/31, but she was wearing a nitroglycerin patch. The patient was given intravenous fluids, and her blood pressure normalized. In the emergency room, the patient was found to have a white blood cell count of 6700 with 47% segmented neutrophils. The patient's hemoglobin was 10.1 g/dL. Blood work done in the emergency room revealed a BUN and creatinine of 8 and 1.48 respectively. The patient's lactic acid level was elevated at 20.5. The patient's B-type naturetic peptide level was normal at 17.2. Urinalysis was unremarkable. Urine toxicology was positive for benzodiazepines and opiates. Arterial blood gas done in the emergency room revealed a pH of 7.38, pCO2 51 mmHg, and a pO2 of 70 mmHg. Chest x-ray performed in the emergency room revealed findings consistent with pulmonary edema, specifically stable interstitial and alveolar opacities bilaterally. The patient underwent a CT of the abdomen and pelvis, which was unremarkable, but did reveal mild hepatosplenomegaly and stable chronic changes, interstitial thickness, and ground-glass opacities. The CT of the abdomen and pelvis did reveal bibasilar atelectasis. The patient was admitted for further evaluation and treatment. REVIEW OF SYSTEMS GENERAL: Weight has been stable. No fever or chills. HEENT: No headaches. No visual changes. CARDIOVASCULAR/RESPIRATORY: Worsening shortness of breath and cough over the last few days. No chest pain or tightness. GI: No nausea, vomiting or constipation. : No UTI symptoms. NEUROMUSCULAR: No limb weakness or numbness. ALLERGIES 1. IODINE. 2. PENICILLIN. 3. SHELLFISH. 4. VALSARTAN. PAST MEDICAL HISTORY 1. COPD. 2. Tobacco abuse. 3. Chronic diastolic congestive heart failure. 4. Hypertensive heart disease. 5. Type 2 diabetes mellitus. 6. Sarcoidosis. 7. Rheumatoid arthritis. 8. Chronic neck and lower back pain secondary to multilevel disk disease. 9. Peripheral arterial disease. 10. Diabetic peripheral neuropathy. SURGICAL HISTORY 1. History of cardiac catheterizations. 2. Appendectomy. 3. Hysterectomy. 4. Cholecystectomy. 5. Abdominal hernia repair. 6. Bowel resection. 7. Lumbar laminectomy. 8. Right knee surgery. SOCIAL HISTORY: The woman is single. Her adult daughter lives with her. She smokes 2 packs of cigarettes a day. Denies any alcohol or illicit drug use. She is unemployed, but receiving disability benefits. FAMILY HISTORY: Multiple family members with hypertension and type 2 diabetes mellitus. MEDICATIONS 1. Dexter 10 per 325 mg 1 b.i.d. p.r.n. pain. 2. Albuterol inhaler 2 puffs q.i.d. 3. Albuterol nebulized treatments t.i.d. as needed. 4. Aspirin 81 mg daily. 5. Buspar 10 mg daily. 6. Citalopram 20 mg daily. 7. Diazepam 10 mg at bedtime. 8. Colace 100 mg daily. 9. Furosemide 40 mg b.i.d. 10. Gabapentin 300 mg b.i.d. 11. Levofloxacin 750 mg daily (the patient just finished this medication 2 days ago). 12. Levothyroxine 100 mcg daily. 13. Lidocaine 5% patch applied daily. 14. Lisinopril 40 mg daily. 15. Metoprolol tartrate 12.5 mg daily. 16. Morphine sulfate ER 15 mg b.i.d. 17. Nicotine patch 21 mg strength 1 patch daily. 18. Nitroglycerin 0.4 mg once a day p.r.n. chest pain. 19. Pantoprazole 40 mg daily. 20. Promethazine 25 mg once daily as needed for nausea. 21. Seroquel 20 mg at bedtime. 22. Imitrex 25 mg once daily as needed for migraine headache. 23. Tizanidine 4 mg every 8 hours p.r.n. muscle spasms. 24. Bisacodyl 5 mg by mouth daily as needed for constipation. 25. Trulicity 0.75 mg subcutaneous weekly. PHYSICAL EXAMINATION GENERAL: She is somnolent but arousable. She does not appear to be in any respiratory distress. VITALS: Blood pressure currently is 109/63, pulse 84, respiratory rate 14, oxygen saturation is 97% on 5 L of oxygen, temperature is 99.3. Height is 5 feet 7 inches and weight is 207 pounds. Calculated body mass index 32. INTEGUMENT: Skin is warm and dry. No pallor of conjunctivae. Anicteric sclerae. Moist mucous membranes. HEENT: The patient has coarse facies. The patient also has a hoarse smoker's cough. NECK: Supple. No evidence of jugular venous distention. CARDIOVASCULAR: Heart sounds are regular rate and rhythm with S3 gallop. LUNGS: The patient has coarse breath sounds and faint expiratory wheezing bilaterally with diminished breath sounds in the bilateral lower lung armijo. ABDOMEN: Obese yet benign. EXTREMITIES: No edema. NEUROLOGIC: No gross focal deficits appreciated. DIAGNOSES 1. Xmorr-tc-[id number] diastolic congestive heart failure. 2. Bilateral pneumonia, resolving, likely gram-negative alexx. 3. Acute renal failure. 4. Chronic obstructive pulmonary disease. 5. Tobacco abuse. 6. Type 2 diabetes mellitus. 7. Iatrogenic hypotension likely secondary to nitroglycerin patches. PLAN 1. Discontinue nitroglycerin patches. 2. Will stop intravenous fluids. 3. Will start intravenous furosemide for the patient's acute congestive heart failure. 4. Monitor renal function. 5. Monitor electrolytes. 6. Restart intravenous antibiotics. 7. Order blood cultures. 8. Highly recommend tobacco cessation. 9. Will stop SOFIYA inhibitor, namely lisinopril at this time until renal function normalizes. 10. I spent 1 hour in the care of this patient. Job#: [id number] NE
[2017-10-16] MEDS ORDERED: INSULIN REGULAR, HUMAN 100 UNIT/1 ML 3ML VIAL SQ SCH (07:30)
[2017-10-16 08:27] LABS: CREATINE KINASE MB 2.1 ng/mL (0.00-5.00)
[2017-10-16] MEDS: METHYLPREDNISOLONE SOD SUCC 40 MG/ML VIAL IV SCH ×2 (09:30→21:22)
[2017-10-16] MEDS: FUROSEMIDE INJ 10 MG/ML 4 ML VIAL IV SCH ×2 (09:30→21:21)
[2017-10-16] MEDS ORDERED: INSULIN LISPRO 100 UNIT/1 ML 3ML VIAL SQ NR (10:00)
[2017-10-16] MEDS: INSULIN LISPRO 100 UNIT/1 ML 3ML VIAL SQ SCH ×4 (13:00→21:30)
[2017-10-16] MEDS: CEFEPIME HCL 2 GM VIAL IV SCH ×3 (13:45→23:26)
[2017-10-16] MEDS ORDERED: GABAPENTIN600 MG PO (16:57)
[2017-10-16] MEDS ORDERED: LISINOPRIL40 MG PO (16:57)
[2017-10-16] MEDS ORDERED: ATORVASTATIN CA10 MG PO (16:57)
[2017-10-16] MEDS ORDERED: BISACODYL5 MG PO (16:57)
[2017-10-16] MEDS ORDERED: NOVOLOG100 UNITS1 SC (16:57)
[2017-10-16] MEDS ORDERED: NITROGLYCERIN1 EAC1 TOP (16:57)
[2017-10-16] MEDS ORDERED: LEVEMIR100 UNIT/1 SC (16:57)
[2017-10-16 17:12] LABS: CREATINE KINASE 44 IU/L (29-168)
[2017-10-16 20:45] VITALS: BP 138/66
[2017-10-16 21:31] VITALS: BP 138/66
[2017-10-16] MEDS: INSULIN DETEMIR 100 UNIT/ML PEN SQ SCH (21:39)
[2017-10-16 23:28] VITALS: BP 125/64
[2017-10-17] VITALS (7 sets, daily range): BP systolic 110–129; BP diastolic 54–77
[2017-10-17] MEDS: ALBUTEROL SULF 0.083% NEB SOLN 3 ML NEB NEB SCH ×5 (03:00→16:00)
[2017-10-17] MEDS: IPRATROPIUM BROMIDE 0.02% 2.5 ML NEB NEB SCH ×5 (03:00→16:00)
[2017-10-17] MEDS: NICOTINE 14 MG/EA PATCH TOP SCH (04:45)
[2017-10-17 06:19] LABS: BASOPHILS % 0.1 % (0.0-1.0); HEMATOCRIT 35.5 % (34.2-44.1); HEMOGLOBIN 11.1 g/dL (12.0-16.0); LYMPHOCYTES % 12.7 % (18.0-39.1); MEAN CORPUSCULAR HEMOGLOBIN 27.1 pg (28-32); MEAN CORPUSCULAR HGB CONC 31.3 g/dL (31-35); MEAN CORPUSCULAR VOLUME 86.6 fL (81-99); MONOCYTES # (AUTO) 0.2 (0.2-0.8); MONOCYTES % 2.6 % (4.4-11.3); NEUTROPHILS # (AUTO) 6.5 (2.1-6.9); NEUTROPHILS % 84.1 % (38.7-80.0); PLATELET COUNT 189 x10e3/uL (140-360); RED CELL DISTRIBUTION WIDTH 15.7 % (11.7-14.4)
[2017-10-17 06:45] LABS: ALBUMIN 2.9 g/dL (3.5-5.0); ALBUMIN/GLOBULIN RATIO 0.7 (0.8-2.0); ANION GAP 12.3 mmol/L (8-16); CALCIUM 8.7 mg/dL (8.4-10.2); POTASSIUM 4.3 mmol/L (3.5-5.1)
[2017-10-17] MEDS: INSULIN LISPRO 100 UNIT/1 ML 3ML VIAL SQ SCH ×7 (07:30→22:00)
[2017-10-17] MEDS: INSULIN DETEMIR 100 UNIT/ML PEN SQ SCH ×2 (07:44→22:00)
--- NOTE | 2017-10-17 08:48 | Diagnostic Imaging Report ---
PROCEDURE:CHEST SINGLE (PORTABLE) TECHNIQUE:Portable AP chest INDICATION:CHF; pneumonia COMPARISON:Patients [facility], DX, CHEST SINGLE (PORTABLE), 10/15/2017, 23:16. FINDINGS: See conclusion. CONCLUSION: 1. Interval improvement in pulmonary edema with mild persistent central vascular congestion. Bibasilar airspace opacities consistent with atelectasis or pneumonia. 2. Interval improvement in cardiomegaly. 3. No sizable pleural effusion. 4. Intact skeleton. Dictated by: Dru Hernandez M.D. on 10/17/2017 at 8:57 Electronically approved by: rDu Hernandez M.D. on 10/17/2017 at 8:57
[2017-10-17] MEDS ORDERED: MORPHINE SULFATE 15MG TAB CR PO SCH (09:00)
[2017-10-17] MEDS ORDERED: INSULIN DETEMIR 60 UNIT SC SCH (09:00)
[2017-10-17] MEDS: FUROSEMIDE INJ 10 MG/ML 4 ML VIAL IV SCH ×2 (09:24→21:30)
[2017-10-17] MEDS: METHYLPREDNISOLONE SOD SUCC 40 MG/ML VIAL IV SCH ×2 (09:24→21:30)
[2017-10-17] MEDS: VANCOMYCIN 1GM/NS 250 ML 250 ML IV SCH ×2 (09:24→21:30)
[2017-10-17] MEDS: CEFEPIME HCL 2 GM VIAL IV SCH (11:38)
[2017-10-17] MEDS: MORPHINE SULFATE 15MG TAB CR PO SCH (21:30)
[2017-10-18] VITALS: BP 117/57
[2017-10-18] MEDS ORDERED: SODIUM CHLORIDE 0.9% 50ML 50 ML ONE (00:27)
[2017-10-18] MEDS: CEFEPIME HCL 2 GM VIAL IV SCH (00:30)
[2017-10-18 04:00] VITALS: BP 125/59
[2017-10-18] MEDS: NICOTINE 14 MG/EA PATCH TOP SCH (04:45)
[2017-10-18] MEDS: IPRATROPIUM BROMIDE 0.02% 2.5 ML NEB NEB SCH (07:00)
[2017-10-18] MEDS: ALBUTEROL SULF 0.083% NEB SOLN 3 ML NEB NEB SCH (07:00)
[2017-10-18 07:09] LABS: BASOPHILS % 0.1 % (0.0-1.0); EOSINOPHILS % 0.1 % (0.0-6.0); HEMATOCRIT 35.5 % (34.2-44.1); HEMOGLOBIN 11.3 g/dL (12.0-16.0); LYMPHOCYTES # (AUTO) 1.4 (1.0-3.2); MEAN CORPUSCULAR HEMOGLOBIN 27.2 pg (28-32); MEAN CORPUSCULAR HGB CONC 31.8 g/dL (31-35); MEAN CORPUSCULAR VOLUME 85.5 fL (81-99); MONOCYTES # (AUTO) 0.2 (0.2-0.8); MONOCYTES % 2.8 % (4.4-11.3); NEUTROPHILS # (AUTO) 5.8 (2.1-6.9); NEUTROPHILS % 77.3 % (38.7-80.0); PLATELET COUNT 201 x10e3/uL (140-360); RED BLOOD COUNT 4.15 x10e6/uL (3.6-5.1)
[2017-10-18 07:32] LABS: ALANINE AMINOTRANSFERASE 19 IU/L (0-55); ALBUMIN 3.1 g/dL (3.5-5.0); ALBUMIN/GLOBULIN RATIO 0.8 (0.8-2.0); ALKALINE PHOSPHATASE 158 IU/L (40-150); ANION GAP 13.4 mmol/L (8-16); BLOOD UREA NITROGEN 21 mg/dL (7-26); BUN/CREATININE RATIO 24 (6-25); CALCIUM 8.8 mg/dL (8.4-10.2); CARBON DIOXIDE 30 mmol/L (22-29); CHLORIDE 100 mmol/L (98-107); CREATININE, SERUM 0.86 mg/dL (0.57-1.11); EST GLOMERULAR FILTRATION RATE > 60 ML/MIN (60-); GLUCOSE 258 mg/dL (74-118); POTASSIUM 4.4 mmol/L (3.5-5.1); SODIUM 139 mmol/L (136-145)
[2017-10-18 08:15] VITALS: BP 125/75
[2017-10-18] MEDS: VANCOMYCIN 1GM/NS 250 ML 250 ML IV SCH (09:00)
[2017-10-18] MEDS: INSULIN LISPRO 100 UNIT/1 ML 3ML VIAL SQ SCH ×2 (09:00)
[2017-10-18] MEDS: METHYLPREDNISOLONE SOD SUCC 40 MG/ML VIAL IV SCH (09:00)
[2017-10-18] MEDS: FUROSEMIDE INJ 10 MG/ML 4 ML VIAL IV SCH (09:00)
[2017-10-18] MEDS: MORPHINE SULFATE 15MG TAB CR PO SCH (09:01)
[2017-10-18] MEDS: INSULIN DETEMIR 100 UNIT/ML PEN SQ SCH (09:01)
--- NOTE | 2017-10-18 10:46 | Discharge Summary ---
ADMITTING DIAGNOSES 1. Byiwd-no-[id number] diastolic congestive heart failure. 2. Bilateral pneumonia, likely gram-negative alexx. 3. Acute renal failure. 4. Chronic obstructive pulmonary disease. 5. Tobacco abuse. 6. Type-2 diabetes mellitus with diabetic peripheral neuropathy. 7. Iatrogenic hypotension likely secondary to nitroglycerin patch. DISCHARGE DIAGNOSES 1. Qdrvk-[id number] diastolic congestive heart failure, resolving. 2. Bilateral pneumonia, likely gram-negative alexx, resolving. 3. Acute renal failure, resolved. 4. Chronic obstructive pulmonary disease. 5. Tobacco abuse. 6. Type-2 diabetes mellitus with diabetic peripheral neuropathy. 7. Iatrogenic hypotension secondary to nitroglycerin patch, resolved. HOSPITAL COURSE: This is a 52-year-old white woman who was initially admitted to [facility] with a diagnosis of [id number] diastolic congestive heart failure as well as bilateral pneumonia, likely gram-negative alexx in etiology. The patient improved dramatically with intravenous furosemide as well as antibiotics, namely cefepime and vancomycin. The patient's hospitalization was unremarkable. On admission, the patient's BUN and creatinine were 8 and 1.48 respectively. On the day of discharge, the patient's BUN and creatinine were 21 and 0.86 respectively. The patient's congestive heart failure, as previously stated, improved with intravenous furosemide 40 mg every 12 hours. It was felt the patient's hypotension was most likely secondary to nitroglycerin patches. Thus, these patches were discontinued. The patient also underwent serial cardiac enzymes as well as electrocardiograms, which did not reveal any evidence of acute myocardial ischemia or infarction. The patient was started on intravenous methylprednisolone for COPD exacerbation, which was quite helpful. It was also felt the patient was oversedated. Thus, many of her home medications were discontinued. The patient's hospitalization was unremarkable. The patient's condition on discharge was stable. DISCHARGE MEDICATIONS 1. Morphine sulfate extended release 15 mg p.o. b.i.d. 2. Ceftin 500 mg 1 p.o. b.i.d. for 7 days. 3. Levemir insulin 60 units subcutaneous b.i.d. 4. Humalog insulin 30 units subcutaneous t.i.d. meals. 5. Furosemide 40 mg p.o. daily. 6. Prednisone 40 mg p.o. daily for 5 days. 7. Ipratropium bromide nebulized treatments up to 4 time a day as needed for shortness of breath or wheezing. 8. Albuterol nebulized treatments up to 4 times a day as needed for shortness of breath or wheezing. 9. Diazepam 10 mg nightly p.r.n. for insomnia. 10. Citalopram 20 mg daily. 11. Colace 100 mg daily. 12. Levothyroxine 100 mcg daily. 13. Bisacodyl 5 mg by mouth daily as needed for constipation. 14. Trulicity 0.75 mg subcutaneous weekly. 15. Aspirin 81 mg daily. 16. Metoprolol tartrate 12.5 mg once daily. 17. Restart lisinopril 40 mg daily. The following medications were discontinued: Hydrocodone in the form of Alexander, BuSpar, gabapentin, lidocaine patches, nicotine patches, nitroglycerin patches, pantoprazole, promethazine, Seroquel, Imitrex, and tizanidine. FOLLOWUP INSTRUCTIONS: The patient was instructed to follow up with her primary care physician, namely myself, Dr. Aldair Crespo, within the next 14 days. Tobacco cessation was highly recommended to the patient. I did not recommend nicotine patches at home, since the patient smokes at least 2 packs per day. I did inform the patient that numerous medications were discontinued because it was felt that she was experiencing oversedation secondary to polypharmacy. ALDAIR CRESPO MD Job#: [id number]
== END 2017-10-18 10:54 | disposition home or self-care (01) | DRG 177 ==
LOC: ER 22:46 → ERHOLD 10-16 04:50 → IMCU 10-16 19:44 → MED/SURG 10-17 15:46
PROVIDERS: ADMIT Internal Medicine; ATTEND Internal Medicine
DX: J15.6 Pneumonia due to other Gram-negative bacteria (principal); I50.33 Acute on chronic diastolic (congestive) heart failure; I95.89 Other hypotension; N17.9 Acute kidney failure, unspecified; J44.0 Chronic obstructive pulmonary disease with (acute) lower respiratory infection; J44.1 Chronic obstructive pulmonary disease with (acute) exacerbation; I11.0 Hypertensive heart disease with heart failure; D86.9 Sarcoidosis, unspecified; F17.210 Nicotine dependence, cigarettes, uncomplicated; E11.40 Type 2 diabetes mellitus with diabetic neuropathy, unspecified; M06.9 Rheumatoid arthritis, unspecified; T46.3X5A Adverse effect of coronary vasodilators, initial encounter; Z79.82 Long term (current) use of aspirin; Z79.4 Long term (current) use of insulin; Z88.8 Allergy status to other drugs, medicaments and biological substances; Z88.0 Allergy status to penicillin; Z91.013 Allergy to seafood
CPT/HCPCS: 36415; 36600; 70450; 71045; 74176; 80053; 80307; 80320; 80329; 81001; 82150; 82550; 82553; 82805; 82948; 83605; 83690; 83735; 83880; 84443; 84484; 85025; 85379; 85610; 85730; 87040; 87070; 87086; 87205; 93005; 94640; 99285; J0692; J1100; J1940; J2920; J2930; J3370; J7030